=== PATIENT | female | born 1995 | race Caucasian/White ===

== ENCOUNTER 2017-04-23 16:09 | Emergency (ER) | payer MEDICARE, MEDICAID ==
[~2017-04-23] VITALS: Ht 152.4 cm; Wt 54.5 kg
[2017-04-23 16:10] VITALS: BP 126/95; PULSE 106; RESP 16; TEMP 98.4; O2SAT 96
--- NOTE | 2017-04-23 16:56 | RADRPT ---
EXAM DATE/TIME: 04/23/2017 16:36 [facility] COMPARISON: No previous studies available for comparison. INDICATIONS : Left hip pain after fall. MEDICAL HISTORY : None. SURGICAL HISTORY : Spine fusion, bilateral hip reconstructions. ENCOUNTER: Initial ACUITY: 1 day PAIN SCORE: 10/10 LOCATION: Left hip. FINDINGS: Bones are diffusely osteoporotic. There is previous surgery aboutt the left hip. The acetabulum is under developed. Definite fracture is not appreciated. Due to osteopenia makes detection of subtle fractures difficult. CONCLUSION: Osteopenia, negative for displaced fracture. Alin Monterroso MD FACR on April 23, 2017 at 16:53 Board Certified Radiologist. This report was verified electronically.
--- NOTE | 2017-04-23 16:57 | RADRPT ---
EXAM DATE/TIME: 04/23/2017 16:44 [facility] COMPARISON: No previous studies available for comparison. INDICATIONS : Left knee pain after fall. MEDICAL HISTORY : None. SURGICAL HISTORY : Spinal fusion, bilateral hip reconstruction. ENCOUNTER: Initial ACUITY: 1 day PAIN SCORE: 10/10 LOCATION: Left knee. FINDINGS: Bones are osteoporotic with fracture of the distal femoral condyle that does extend intra-articular. Plateau is intact.. CONCLUSION: Fracture distal femoral condyle Diffuse osteopenia. Alin Monterroso MD FACR on April 23, 2017 at 16:55 Board Certified Radiologist. This report was verified electronically.
[2017-04-23] MEDS ORDERED: MORPHINE SULFATE 4 MG/ML INJ IV PUSH ONE (17:30)
[2017-04-23] MEDS ORDERED: MORPHINE SULFATE 8 MG/ML INJ IV PUSH ONE (18:00)
[2017-04-23 19:12] VITALS: BP 134/80; PULSE 75; RESP 16; O2SAT 100
--- NOTE | 2017-04-23 19:24 | PD ---
HPI Chief Complaint: Injury Time Seen by Provider: 17:17 Travel History International Travel<30 days: No Contact w/Intl Traveler<30days: No Traveled to known affect area: No History of Present Illness HPI Patient is a 21 year old female with history of congenital muscular atrophy, who comes in after she fell out of her wheel chair. She says she fell forward and hit her head. She complains of pain to her left leg. She denies any headache, dizziness, blurred vision. She denies any neck pain or numbness or tingling to her extremities. PFSH Past Medical History Diminished Hearing: No Medical other: Yes (WHEELCHAIR BOUND ONLY) Neurologic: Yes (SPINAL MUSCULAR ATROPY ) Respiratory: Yes (sleep apnea) Immunizations Current: No Sleep Apnea: Yes (NO CPAP) Tetanus Vaccination: < 5 Years Influenza Vaccination: No ?: Not LMP: now : 0 Past Surgical History Joint Replacement: Yes (R/L hip Surgery ) Neurologic Surgery: Yes (spinal fusion) Other Surgery: Yes (ABDUCTOR RELEASE BOTH GROIN ) Social History Alcohol Use: No Tobacco Use: No Substance Use: No Allergies-Medications (Allergen,Severity, Reaction): Coded Allergies: No Known Allergies (Unverified , 04/23/17) Reported Meds & Prescriptions Reported Meds & Active Scripts Active No Active Prescriptions or Reported Medications Review of Systems General / Constitutional: No: Fever, Chills Eyes: No: Blurred Vision HENT: No: Headaches, Lightheadedness Cardiovascular: No: Chest Pain or Discomfort Respiratory: No: Shortness of Breath Gastrointestinal: No: Nausea, Vomiting, Abdominal Pain Musculoskeletal: Positive: Pain Skin: No Rash, No Change in Pigmentation Neurologic: No: Weakness, Dizziness, Syncope Physical Exam Narrative GENERAL: Awake and alert, in no acute distress. SKIN: Focused skin assessment warm/dry. No wounds. HEAD: Atraumatic. Normocephalic. EYES: Pupils equal and round. No scleral icterus. EOMI. ENT: Mucous membranes pink and moist. NECK: Trachea midline. No JVD. No cervical spine tenderness. CARDIOVASCULAR: Regular rate and rhythm. No murmur appreciated. RESPIRATORY: No accessory muscle use. Clear to auscultation. Breath sounds equal bilaterally. MUSCULOSKELETAL: No obvious deformities. No clubbing. No cyanosis. No edema. pain to palpation of the left leg. Severe muscle wasting. Data Data Last Documented VS Vital Signs Date Time Temp Pulse Resp B/P (MAP) Pulse Ox O2 Delivery O2 Flow Rate FiO2 04/23/17 19:13 76 16 100 Room Air 04/23/17 19:12 134/80 (98) 04/23/17 16:10 98.4 Orders Orders Hip, Uni(Ap&Lat) W Ap Pelvis (04/23/17 ) Knee, Ltd (1 Or 2vws) (04/23/17 ) Tibia/Fibula (Ap/Lat) (04/23/17 ) Ct Cerv Spine W/O Contrast (04/23/17 ) Ct Brain W/O Iv Contrast(Rout) (04/23/17 ) Iv Access Insert/Monitor (04/23/17 17:23) Morphine Inj (Morphine Inj) (04/23/17 17:30) Morphine Inj (Morphine Inj) (04/23/17 18:00) Oxycodone-Acetamin 5-325 Mg (Percocet (04/23/17 20:00) MDM Medical Decision Making Medical Screen Exam Complete: Yes Emergency Medical Condition: Yes Differential Diagnosis hip fracture vs knee fracture vs ICH Narrative Course Patient is a 21-year-old female comes in after she fell out of her wheelchair. Exam shows tenderness to left leg. X-ray performed shows a fracture of the distal femur. I spoke with Dr. Juan regarding this, who suggests immobilization and pain control. Patient given morphine for pain. Placed in a knee immobilizer. Advised follow- up with orthopedics. Advised to return to the ED as needed for any worsening symptoms. Last 24 hours Impressions Knee X-Ray 04/23/17 0000 Signed Impressions: Service Date/Time: Sunday, April 23, 2017 16:44 - CONCLUSION: Fracture distal femoral condyle Diffuse osteopenia. Alin Monterroso MD FACR Hip and Pelvis X-Ray 04/23/17 0000 Signed Impressions: Service Date/Time: Sunday, April 23, 2017 16:36 - CONCLUSION: Osteopenia, negative for displaced fracture. Alin Monterroso MD FACR Head CT 04/23/17 0000 Signed Impressions: Service Date/Time: Sunday, April 23, 2017 18:34 - CONCLUSION: Negative noncontrast CT brain. Gal Soria MD Cervical Spine CT 04/23/17 0000 Signed Impressions: Service Date/Time: Sunday, April 23, 2017 18:34 - CONCLUSION: Negative trauma CT cervical spine. Gal Soria MD Diagnosis Primary Impression: Fracture, femur, distal Qualified Codes: S72.492A - Other fracture of lower end of left femur, initial encounter for closed fracture Referrals: Vivek Juan MD call for appointment Patient Instructions: General Instructions, Leg Fracture (ED) Additional Instructions: Follow up with orthopedics. Take pain medicine as needed. Return to the ED as needed for any worsening symptoms. Take a baby aspirin each day to prevent blood clotting. Scripts Oxycodone-Acetaminophen (Percocet) 5-325 mg Tab 1 TAB PO Q6H Y for PAIN, #20 TAB 0 Refills Prov: Rosalba Land MD 04/23/17 Disposition: 01 DISCHARGE HOME Condition: Stable Rosalba Land MD Apr 23, 2017 19:24
--- NOTE | 2017-04-23 19:46 | RADRPT ---
EXAM DATE/TIME: 04/23/2017 18:34 [facility] COMPARISON: No previous studies available for comparison. INDICATIONS : Patient fell out of wheelchair, hitting head. RADIATION DOSE: 31.54 CTDIvol (mGy) MEDICAL HISTORY : spinal muscular atrophy SURGICAL HISTORY : spinal fusion, left and right hip surgery ENCOUNTER: Initial ACUITY: 1 day PAIN SCALE: 3/10 LOCATION: cranial TECHNIQUE: Multiple contiguous axial images were obtained of the head. Using automated exposure control and adj ustment of the mA and/or kV according to patient size, radiation dose was kept as low as reasonably a chievable to obtain optimal diagnostic quality images. DICOM format image data is available electro nically for review and comparison. FINDINGS: CEREBRUM: The ventricles are normal for age. No evidence of midline shift, mass lesion, hemorrhage or acute in farction. No extra-axial fluid collections are seen. POSTERIOR FOSSA: The cerebellum and brainstem are intact. The 4th ventricle is midline. The cerebellopontine angle i s unremarkable. EXTRACRANIAL: The visualized portion of the orbits is intact. SKULL: The calvaria is intact. No evidence of skull fracture. CONCLUSION: Negative noncontrast CT brain. Gal Soria MD on April 23, 2017 at 19:44 Board Certified Radiologist. This report was verified electronically.
--- NOTE | 2017-04-23 19:49 | RADRPT ---
EXAM DATE/TIME: 04/23/2017 18:34 [facility] COMPARISON: No previous studies available for comparison. INDICATIONS : Patient fell out of wheelchair, hitting head. RADIATION DOSE: 19.37 CTDIvol (mGy) MEDICAL HISTORY : spinal muscular atrophy SURGICAL HISTORY : spinal fusion, right and left hip surgery ENCOUNTER: Initial ACUITY: 1 day PAIN SCALE: 3/10 LOCATION: neck TECHNIQUE: Volumetric scanning of the cervical spine was performed. Multiplanar reconstructions in the sagittal, coronal and oblique axial planes were performed. Using automated exposure control and adjustment o f the mA and/or kV according to patient size, radiation dose was kept as low as reasonably achievable to obtain optimal diagnostic quality images. DICOM format image data is available electronically f or review and comparison. FINDINGS: There is straightening of the cervical lordosis. Vertebral body height is maintained. No evidence o f spondylolisthesis. The posterior elements are normal on rule out evidence of locked or 1st facets. Patient's head is turned towards the right at the C1-2 articulation. Prevertebral soft tissues are normal in thickness. C2-C3: No fracture seen. The neural foramina are patent. C3-C4: No fracture seen. The neural foramina are patent. C4-C5: No fracture seen. The neural foramina are patent. C5-C6: No fracture seen. The neural foramina are patent. C6-C7: No fracture seen. The neural foramina are patent. C7-T1: No fracture seen. The neural foramina are patent. CONCLUSION: Negative trauma CT cervical spine. Gal Soria MD on April 23, 2017 at 19:44 Board Certified Radiologist. This report was verified electronically.
--- NOTE | 2017-04-23 19:53 | RADRPT ---
EXAM DATE/TIME: 04/23/2017 18:51 [facility] COMPARISON: KNEE LEFT LTD (1 OR 2VWS), April 23, 2017, 16:44. INDICATIONS : Left knee pain after fall. MEDICAL HISTORY : None. SURGICAL HISTORY : Spinal fusion, bilateral hip reconstruction. ENCOUNTER: Initial ACUITY: 1 day PAIN SCORE: 10/10 LOCATION: Left lower leg. FINDINGS: The shaft of the tibia and fibula are intact. The osseous structures are diffusely osteopenic. Impa cted fracture of the distal femoral metaphysis and soft tissue density within the suprapatellar regio n, similar to initial radiographs of the knee. CONCLUSION: The tibia and fibula are intact. Moderate severity osteopenia. Gal Soria MD on April 23, 2017 at 19:50 Board Certified Radiologist. This report was verified electronically.
[2017-04-23] MEDS ORDERED: oxyCODONE/ACETAMINOPHEN 5 MG/325 MG TAB PO ONE (20:00)
[2017-04-23] MEDS ORDERED: PERC5TAB12 PO (20:01)
== END 2017-04-23 21:13 | disposition home or self-care (01) ==
LOC: NEPD 16:09 → EDBD 16:09 → NEPD 21:13
DX: S72.492A Other fracture of lower end of left femur, initial encounter for closed fracture (principal); W05.0XXA Fall from non-moving wheelchair, initial encounter
CPT/HCPCS: 70450; 72125; 73502; 73560; 73590; 96374; 96375; 99285; J2270